=== PATIENT | female | born 1975 | race Caucasian/White ===

== ENCOUNTER 2023-04-25 06:26 | Outpatient (CLI) | payer BC, SELFPAY ==
--- NOTE | 2023-04-25 07:59 | W.ANESCHARGE ---
Anesthesia Charges Start Date/Time Anesthesia Start Date: 04/25/23 Anesthesia Start Time: 07:35 Stop Date/Time Anesthesia Stop Date: 04/25/23 Anesthesia Stop Time: 08:00
--- NOTE | 2023-04-25 08:05 | W.ANESCHARGE ---
Anesthesia Charges Start Date/Time Anesthesia Start Date: 04/25/23 Anesthesia Start Time: 07:35 Stop Date/Time Anesthesia Stop Date: 04/25/23 Anesthesia Stop Time: 08:00
== END 2023-04-25 06:27 | disposition home or self-care (01) ==
LOC: OP CLINIC 06:28
PROVIDERS: PCP Family Medicine; Visit Provider Surgery
DX: Z12.11 Encounter for screening for malignant neoplasm of colon (principal); K64.8 Other hemorrhoids
CPT/HCPCS: 00811; 00812; 45378; J2704

== ENCOUNTER 2023-07-26 12:28 | Emergency (ER) | payer BC, SELFPAY ==
[2023-07-26 12:44] VITALS: BP 130/76; PULSE 101; RESP 18; TEMP 36.2; O2SAT 97; BMI 24.3
--- NOTE | 2023-07-26 14:04 | ED.GENADULT ---
HPI - General Adult General Date Seen: 07/26/23 Chief complaint: Unspecified Complaint, Adult Stated complaint: fever,body aches,chills Time Seen by Provider: 07/26/23 13:43 History of Present Illness HPI narrative: This is a pleasant 47-year-old female with a history of dyslipidemia but otherwise generally healthy who presents to the ER today for evaluation of an illness that is been ongoing for 3 days, beginning on Tuesday. For symptoms were sore throat, followed by mild nasal congestion and mild cough. She also developed some body aches. Yesterday she began to develop a mild headache that was treated with ibuprofen yesterday and is now gone. Also yesterday evening she began to develop nausea and she has had several episodes of nonbilious, nonbloody emesis. Since last night she has also developed multiple episodes of watery diarrhea. No bloody or mucousy stool. She is not having much abdominal pain. She did have some fevers and chills yesterday but no high fevers today. She has been trying to take ibuprofen for body aches but can not keep anything down today so came here to the ER. Her daughter was sick about 2 or 3 weeks ago with influenza but she has no other known recent sick exposures. No recent travel. No known specific food exposure to cause diarrhea. No recent antibiotics. Related Data Home Medications Medication Instructions Recorded Confirmed atorvastatin 20 mg tablet 20 mg PO DAILY 07/26/23 07/26/23 citalopram 20 mg tablet 30 mg PO DAILY 07/26/23 07/26/23 indomethacin 25 mg capsule 25 mg PO 3XD PRN 07/26/23 07/26/23 lorazepam 1 mg tablet 0.5 - 1 mg PO BID PRN 07/26/23 07/26/23 phentermine 37.5 mg tablet 37.5 mg PO DAILY 07/26/23 07/26/23 topiramate 25 mg tablet 25 mg PO DAILY 07/26/23 07/26/23 Previous Rx's Medication Instructions Recorded peg 3350-electrolytes 236 240 ml PO ONCE #4,000 mL 04/07/23 gram-22.74 gram-6.74 gram-5.86 gram solution (Golytely) Allergies Allergy/AdvReac Type Severity Reaction Status Date / Time sertraline [From Zoloft] Allergy Mild Anxiety Verified 07/26/23 12:49 Exam Narrative: Exam Narrative: Constitutional: Appears well-developed and well-nourished. Alert. Conversant but looks like she does not feel very well.. Non toxic. HENT: Head: Atraumatic. Nose: Nose normal. Mouth/Throat: Oral mucosa is clear but mucous membranes are dry, not desiccated a crack. no trismus. Pharynx normal. Tonsils symmetric. No tonsillar enlargement, erythema, or exudate. Eyes: Conjunctivae normal. EOM normal. Pupils equal, round, and reactive to light. No scleral icterus. Neck: Normal range of motion. Neck supple. No tracheal deviation present. Cardiovascular: Normal rate, regular rhythm. No gallop. No friction rub. No murmur heard. Symmetric radial and PT artery pulses . Normal cap refill. Pulmonary/Chest: Effort normal. No stridor. No respiratory distress. No wheezes. No rales. No rhonchi . No tenderness. Abdominal: Soft. Bowel sounds normal. No distension. No mass. No tenderness. No rebound. No guarding. No HSM. No CVA tenderness. Musculoskeletal: RUE: Normal range of motion. No tenderness. No deformity LUE: Normal range of motion. No tenderness. No deformity RLE: Normal range of motion. No edema. No tenderness. No deformity LLE: Normal range of motion. No edema. No tenderness. No deformity Neurological: Alert and oriented to person, place, and time. Normal strength. CN II-VII intact. No sensory deficit. GCS eye subscore is 4. GCS verbal subscore is 5. GCS motor subscore is 6. Normal coordination Skin: Skin is warm and dry. No rash noted. No pallor. Normal capillary refill. Psychiatric: Normal mood. Normal affect. Const: Vital Signs, click to edit/add: Vital Signs - 24 hr 07/26/23 12:44 Temperature 97.1 F L Pulse Rate [Left] 101 H Respiratory Rate 18 Blood Pressure [Ri ght Upper Arm] 130/76 Pulse Oximetry 97 Oxygen Delivery Me thod Room Air Course Course ED Course: Recheck-feeling better after Zofran and Toradol. Reevaluation(s) Reevaluation #1: Recheck-has mild recurrence of nausea. Not sure if she is really getting more nauseous or she just is hungry needs to put some food in her stomach. Feels well enough that she wants to get home with Zofran 0 DT, rather than receive more meds here in the ER. Vital Signs Vital signs: Initial Vital Signs Temperature 97.1 F L 07/26/23 12:44 Temperature Source Temporal Artery Scan 07/26/23 12:44 Pulse Rate 101 H 07/26/23 12:44 Respiratory Rate 18 07/26/23 12:44 Blood Pressure 130/76 07/26/23 12:44 Blood Pressure Mean 94 07/26/23 12:44 Blood Pressure Position Sitting 07/26/23 12:44 Pulse Oximetry 97 07/26/23 12:44 Oxygen Delivery Method Room Air 07/26/23 12:44 Vital Signs Temperature 97.1 F L 07/26/23 12:44 Pulse Rate 101 H 07/26/23 12:44 Respiratory Rate 18 07/26/23 12:44 Blood Pressure 130/76 07/26/23 12:44 Pulse Oximetry 97 07/26/23 12:44 Oxygen Delivery Method Room Air 07/26/23 12:44 Temperature 97.1 F L 07/26/23 12:44 Pulse Rate 101 H 07/26/23 12:44 Respiratory Rate 18 07/26/23 12:44 Blood Pressure 130/76 07/26/23 12:44 Pulse Oximetry 97 07/26/23 12:44 Oxygen Delivery Method Room Air 07/26/23 12:44 Medications Administered Medications: Discontinued Medications Generic Name Dose Route Start Last Admin Trade Name Freq PRN Reason Stop Dose Admin Sodium Chloride 1,000 mls @ 1,000 mls/hr 07/26/23 14:15 07/26/23 14:31 0.9 % Sodium Chloride 1000 Ml IV 07/26/23 15:14 1,000 mls/hr .Q1H YUE Administration Ketorolac Tromethamine 15 mg 07/26/23 14:02 07/26/23 14:31 Ketorolac 15 Mg/Ml Inj IVP 07/26/23 14:03 15 mg ONCE ONE Administration Ondansetron HCl 4 mg 07/26/23 14:02 07/26/23 14:31 Ondansetron 2 Mg/Ml Inj IVP 07/26/23 14:03 4 mg ONCE ONE Administration Medical Decision Making [facility] Narrative Medical decision making narrative: This patient presents with vomiting and diarrhea as well as body aches, low-grade fever, sore throat.. The patient's symptoms and exam could be consistent with a viral GI infection. Testing is negative for influenza, RSV, coronavirus. There is no high fever, severe pain, bilious or bloody emesis, blood or mucous in the stool, severe abdominal pain, or other concerning signs for a bacterial infection. No recent travel or high risk exposure for bacteraial pathogen. No recent antibiotics or risk factors for C. diff. I don't see any evidence for appendicitis, bowel obstruction, abscess, bowel perforation, or other surgical emergency. Labs show no concerning electrolyte disturbance or renal failure. After meds given the patient is feeling better. At this point, the patient is non-septic appearing and well hydrated.I think the patient can be managed as an outpatient. We have discussed oral rehydration strategies. They understand and can perform the needed interventions at home. I have provided a prescription for antiemetics to facilitate oral hydration (Zofran ODT-10 tablets). We have discussed the signs and symptoms of worsening dehydration. They understand the need for immediate reevaluation if any of these symptoms occur. They are also directed to obtain close outpatient follow up within 2-3 days. Lab Data Labs: Lab Results 07/26/23 07/26/23 07/26/23 Range/Units 14:22 14:22 14:22 Sodium Cancelled 139 Potassium Cancelled 4.2 Chloride Cancelled Carbon Dioxide Anion Gap BUN Creatinine Estimated Creat Clear Estimated GFR Glucose Calcium Total Bilirubin (0.1-1.5) mg/dL AST (12-35) U/L ALT (4-35) U/L Alkaline Phosphatase (40-150) U/L Total Protein (6.0-8.3) g/dL Albumin (3.3-5.0) g/dL SARS-CoV-2 (PCR) (Negative) Influenza Type A (PCR) (Negative) Influenza Type B (PCR) (Negative) RSV (PCR) (Negative) 07/26/23 07/26/23 07/26/23 Range/Units 14:22 14:22 14:22 Sodium Potassium Chloride 105 Carbon Dioxide Cancelled 25 Anion Gap Cancelled 9 BUN Cancelled Creatinine Estimated Creat Clear Estimated GFR Glucose Calcium Total Bilirubin (0.1-1.5) mg/dL AST (12-35) U/L ALT (4-35) U/L Alkaline Phosphatase (40-150) U/L Total Protein (6.0-8.3) g/dL Albumin (3.3-5.0) g/dL SARS-CoV-2 (PCR) (Negative) Influenza Type A (PCR) (Negative) Influenza Type B (PCR) (Negative) RSV (PCR) (Negative) 07/26/23 07/26/23 07/26/23 Range/Units 14:22 14:22 14:22 Sodium Potassium Chloride Carbon Dioxide Anion Gap BUN 16 Creatinine Cancelled 0.7 Estimated Creat Clear Cancelled 80.42 Estimated GFR Cancelled Glucose Calcium Total Bilirubin (0.1-1.5) mg/dL AST (12-35) U/L ALT (4-35) U/L Alkaline Phosphatase (40-150) U/L Total Protein (6.0-8.3) g/dL Albumin (3.3-5.0) g/dL SARS-CoV-2 (PCR) (Negative) Influenza Type A (PCR) (Negative) Influenza Type B (PCR) (Negative) RSV (PCR) (Negative) 07/26/23 07/26/23 07/26/23 Range/Units 14:22 14:22 14:22 Sodium Potassium Chloride Carbon Dioxide Anion Gap BUN Creatinine Estimated Creat Clear Estimated GFR 106 Glucose Cancelled 121 H Calcium Cancelled 9.5 Total Bilirubin 0.8 (0.1-1.5) mg/dL AST 31 (12-35) U/L ALT 31 (4-35) U/L Alkaline Phosphatase 127 (40-150) U/L Total Protein 8.3 (6.0-8.3) g/dL Albumin 4.7 (3.3-5.0) g/dL SARS-CoV-2 (PCR) Negative SARS-CoV-2 (Negative) Influenza Type A (PCR) Negative PCR FLU A (Negative) Influenza Type B (PCR) Negative PCR FLU B (Negative) RSV (PCR) Negative PCR RSV (Negative) Discharge Plan Discharge Clinical Impression: Nausea vomiting and diarrhea Patient Disposition: Home, Self-Care Condition: Stable Instructions: Acute Nausea and Vomiting (DC), Acute Diarrhea (ED) Additional Instructions: As we discussed, please return to the ER right away if you have worsening since symptoms: especially high fever, bloody or mucousy stool, bloody vomit, worsening abdominal pain, uncontrolled vomiting, dehydration or weakness, or if you have any concerns Prescriptions: No Action atorvastatin 20 mg tablet 20 mg PO DAILY topiramate 25 mg tablet 25 mg PO DAILY phentermine 37.5 mg tablet 37.5 mg PO DAILY citalopram 20 mg tablet 30 mg PO DAILY indomethacin 25 mg capsule 25 mg PO 3XD PRN lorazepam 1 mg tablet 0.5 - 1 mg PO BID PRN peg 3350-electrolytes [Golytely] 236-22.74-6.74 -5.86 gram recon soln 240 ml PO ONCE Qty: 4000 0RF Rx Instructions: 4pm day prior to procedure. Drink 8oz glass every 15 minutes until 1/2 of solution is gone. 6 hours prior to procedure drink 8 oz glass every 15 minutes until remaining solution gone. Follow Up/Referrals: Fredy Knight MD [Primary Care Provider] - Stand Alone Forms: [facility] Info Instructions
[2023-07-26] MEDS: KETOROLAC 15 MG/ML inj IVP (14:31)
[2023-07-26] MEDS: ONDANSETRON 2 MG/ML inj 4 MG IVP (14:31)
[2023-07-26] MEDS: 0.9 % SODIUM CHLORIDE 1000 ml 1,000 ML IV (14:31)
[2023-07-26 14:53] LABS: Albumin* 4.7 g/dL (3.3-5.0)
[2023-07-26 14:54] LABS: Chloride* 105 mmol/L (96-114); Potassium* 4.2 mmol/L (3.6-5.1); Sodium* 139 mmol/L (135-149)
[2023-07-26 14:56] LABS: Anion Gap 9 mEq/L (7-15); Aspartate Amino Transferase* 31 U/L (12-35); Bilirubin Total* 0.8 mg/dL (0.1-1.5); Carbon Dioxide* 25 mmol/L (20-32); Creatinine* 0.7 mg/dL (0.5-1.5); Est. Creatinine Clearance* 80.42; Estimated Glomerular Filt Rate 106 ml/min
[2023-07-26 14:57] LABS: Alanine Aminotransferase* 31 U/L (4-35); Alkaline Phosphatase* 127 U/L (40-150); Blood Urea Nitrogen* 16 mg/dL (5-24); Calcium* 9.5 mg/dL (8.4-10.6); Glucose* 121 mg/dL (60-115); Total Protein* 8.3 g/dL (6.0-8.3)
[2023-07-26 15:28] LABS: PCR FLU A Negative PCR FLU A (Negative); PCR FLU B Negative PCR FLU B (Negative); PCR RSV Negative PCR RSV (Negative)
[2023-07-26 15:29] LABS: SARS PCR* Negative SARS-CoV-2 (Negative)
== END 2023-07-26 17:10 | disposition home or self-care (01) ==
PROVIDERS: Emergency Provider Emergency Medicine; PCP Family Medicine
DX: R11.2 Nausea with vomiting, unspecified (principal); R19.7 Diarrhea, unspecified
CPT/HCPCS: 36415; 80048; 80053; 87631; 96361; 96374; 96375; 99283; 99284; J1885; J2405; J7030

== ENCOUNTER 2024-01-16 08:27 | Outpatient (CLI) | payer BC, SELFPAY ==
--- NOTE | 2024-01-16 08:45 | CRLHL7_ITS ---
For Patients: As a result of the Century Cures Act, medical imaging exams and procedure reports are released immediately into your electronic medical record. You may view this report before your referring provider. If you have questions, please contact your health care provider. BILATERAL SCREENING MAMMOGRAM WITH COMPUTER-AIDED DETECTION AND TOMOSYNTHESIS TECHNIQUE: CC and MLO views were obtained. These mammographic images have been obtained using full-field digital technique. These mammographic images were interpreted with the benefit of computer-aided detection. Breast Tomosynthesis was used in this interpretation. COMPARISON FILM: 02/13/20. FINDINGS: The breasts are almost entirely fatty. IMPRESSION: There is no radiographic evidence for malignancy. ASSESSMENT: BI-RADS Category 2: Benign RECOMMENDATION: Routine screening mammogram in 1 year. A lay language report of this examination will be provided to the patient. Ryan Mckenzie M.D. Diagnostic Radiologist [email or web address] SP/Dictated by: Ryan Mckenzie MD @ 01/23/2024 11:49:00 AM (Electronically Signed)
== END 2024-01-16 08:28 | disposition home or self-care (01) ==
LOC: MAMMO 08:28
PROVIDERS: PCP Family Medicine; Visit Provider Family Medicine
DX: Z12.31 Encounter for screening mammogram for malignant neoplasm of breast (principal)
CPT/HCPCS: 77063; 77067

== ENCOUNTER 2025-02-07 07:01 | Outpatient (CLI) | payer BC, SELFPAY ==
--- NOTE | 2025-02-07 07:15 | MR_ITS ---
EXAM: MRI OF THE RIGHT SHOULDER CLINICAL INFORMATION: The patient is a 49-year-old with right shoulder pain. Evaluate for rotator cuff tear. Evaluate for bursitis or tendinitis. PRIOR SURGERY: None reported. COMPARISON STUDIES: There are no prior studies available for comparison. TECHNICAL INFORMATION: Imaging was performed on a high-field, 1.5 Carli MR scanner. Coronal proton-density, T2, and STIR imaging of the right shoulder was performed in addition to axial and sagittal proton-density and T2 imaging. FINDINGS: Articular/Extraarticular collections: Effusion: Mild. Subacromial/subdeltoid: Mild to moderate fluid is seen within the subacromial/subdeltoid bursa, in keeping with changes of bursitis. Subcoracoid: No evidence for bursitis. Osseous structures: Proximal humerus: No evidence for bony injury to the proximal humerus can be seen. There is no evidence for greater tuberosity fracture. No Hill-Sachs or reverse Hill-Sachs deformity is seen. Glenoid: No acute bony abnormality of the glenoid fossa or glenoid neck can be seen. Acromioclavicular joint: Moderate changes of acromioclavicular joint arthrosis are present and can be seen on sagittal series 8 image 13. Coracoacromial arch: Acromion morphology: Type II. No evidence for os acromiale. Acromiohumeral space: Mildly narrowed. Coracohumeral space: Mildly narrowed. Rotator cuff and deltoid: Supraspinatus: Moderate changes of supraspinatus tendinosis can be seen with intrasubstance splitting of the tendon fibers. No full-thickness tearing or retraction is seen. No atrophic changes of the supraspinatus muscle belly are present. Infraspinatus: Moderate infraspinatus tendinosis can be seen. There is no evidence for full or partial-thickness tearing. No atrophic changes of the infraspinatus muscle belly are identified. Teres minor: No evidence for tendinosis, tearing, or associated muscle belly atrophy. Subscapularis: Moderate subscapularis tendinosis can be seen. There is no evidence for full or partial-thickness tearing. No atrophic changes of the subscapularis muscle belly are noted. Deltoid: No evidence for strain or tearing. Biceps tendon: The intra-articular and biceps sulcus portions of the biceps tendon are normal. There is no evidence for rupture, dislocation, or subluxation. Glenohumeral joint and labrum: Articular Cartilage: No chondral injuries along the articular surfaces of the glenohumeral articulation can be seen. No osteoarthritic changes are identified. Labrum: The anterior, posterior, superior, and inferior portions of the labrum appear intact. No evidence for paralabral ganglion cyst formation can be seen. Capsular Soft Tissues: No definite capsular abnormalities of the glenohumeral joint are seen. No evidence for capsular tearing is present and there are no MR signs of adhesive capsulitis. CONCLUSION: 1. Moderate supraspinatus, infraspinatus, and subscapularis tendinosis. No full or partial-thickness rotator cuff tearing is seen. 2. Moderate acromioclavicular joint arthrosis with mild narrowing of the acromiohumeral space. 3. The glenoid labrum and long head of the biceps tendon appear intact. 4. Mild glenohumeral joint effusion and mild to moderate subacromial/subdeltoid bursitis. 5. No osteoarthritic changes of the glenohumeral articulation are seen. [facility] Electronically signed on 02/07/2025 8:44:00 AM by Andre Hauser M.D.
== END 2025-02-07 07:02 | disposition home or self-care (01) ==
LOC: MRI 07:02
PROVIDERS: PCP Family Medicine; Visit Provider Physician Assistant Surgical
DX: M25.511 Pain in right shoulder (principal); M75.101 Unspecified rotator cuff tear or rupture of right shoulder, not specified as traumatic; M19.011 Primary osteoarthritis, right shoulder; M75.51 Bursitis of right shoulder
CPT/HCPCS: 73221

== ENCOUNTER 2025-03-20 04:31 | Outpatient (CLI) | payer BC, SELFPAY | END 2025-03-20 04:32 | disposition home or self-care (01) | LOC: AMB 03-21 15:07 | PROVIDERS: PCP Family Medicine; Visit Provider Family Medicine | DX: R10.13 Epigastric pain (principal) | CPT/HCPCS: A0425; A0427 ==

== ENCOUNTER 2025-07-09 15:46 | Outpatient (CLI) | payer BC, SELFPAY ==
--- NOTE | 2025-07-09 16:00 | CRLHL7_ITS ---
For Patients: As a result of the Century Cures Act, medical imaging exams and procedure reports are released immediately into your electronic medical record. You may view this report before your referring provider. If you have questions, please contact your health care provider. INDICATION: BILATERAL SCREENING MAMMOGRAM, ASYMPTOMATIC 49 Y/O FEMALE COMPARISON: 01/16/2024, 02/13/2020, 10/17/2017 TECHNIQUE: Digital mammogram in CC and MLO projections including computer-aided detection (CAD) and tomosynthesis. BREAST COMPOSITION: There are scattered areas of fibroglandular density. FINDINGS: No suspicious findings. ASSESSMENT: BI-RADS 1 Negative RECOMMENDATION: Annual screening mammogram. A lay language report of this examination will be provided to the patient. Dictated by: Ryan Mckenzie MD @ 07/10/2025 10:44:30 (Electronically Signed)
== END 2025-07-09 15:47 | disposition home or self-care (01) ==
LOC: MAMMO 15:47
PROVIDERS: PCP Family Medicine; Visit Provider Family Medicine
DX: Z12.31 Encounter for screening mammogram for malignant neoplasm of breast (principal)
CPT/HCPCS: 77063; 77067